=== PATIENT | male | born 1995 | race Two or more races ===

== ENCOUNTER 2019-10-26 00:32 | Emergency (ER) | payer OTHER ==
[~2019-10-26] VITALS: Ht 172.7 cm; Wt 77.0 kg
[2019-10-26] MEDS ORDERED: CLONIDINE 0.2MG TABLET PO ONE (01:15)
[2019-10-26 01:51] LABS: BASOPHILS % 0.6 % (0.0-2.0); EOSINOPHILS % 2.7 % (0.0-5.0); HEMATOCRIT. 45.6 % (42.0-52.0); HEMOGLOBIN. 15.8 g/dL (14.0-18.0); LYMPHOCYTES % 13.9 % (20.0-50.0); MEAN CORPUSCULAR HEMOGLOBIN 30.7 pg (28.0-32.0); MEAN CORPUSCULAR VOLUME 88.6 fL (80.0-94.0); MEAN PLATELET VOLUME 9.7 fl (7.4-10.4); MONOCYTES % 4.1 % (2.0-8.0); NEUTROPHILS % 78.7 % (40.0-76.0); PLATELET 169 x1000/uL (130-400); RED BLOOD CELL COUNT 5.15 mill/uL (4.7-6.1); RED CELL DISTRIBUTION WIDTH 12.8 % (11.6-14.6)
[2019-10-26 01:57] LABS: CHLORIDE 109 mEq/L (98-107)
[2019-10-26 03:30] VITALS: BP 158/74
== END 2019-10-26 03:47 | disposition left against medical advice (07) ==
LOC: ER 00:32
DX: I16.1 Hypertensive emergency (principal); I10 Essential (primary) hypertension; R94.31 Abnormal electrocardiogram [ECG] [EKG]; Z53.29 Procedure and treatment not carried out because of patient's decision for other reasons
CPT/HCPCS: 36415; 71045; 80053; 83880; 84484; 85025; 93005; 99285